=== PATIENT | female | born 1995 | race African-American/Black ===

== ENCOUNTER 2019-05-16 18:25 | Emergency (ER) | payer OTHER, BC ==
[~2019-05-16] VITALS: Ht 172.7 cm; Wt 70.8 kg
[2019-05-16 18:25] VITALS: BP_SYST 115
--- NOTE | 2019-05-16 18:25 | NUR ---
BROUGHT IN BY [facility], PLACED IN BED #8 AND TRIAGED. REPORT GIVEN TO BRANT
[2019-05-16] MEDS ORDERED: ONDANSETRON HCL 4 MG/2 ML VIAL IVP ONE (18:45)
[2019-05-16] MEDS ORDERED: KETOROLAC TROMETHAMINE 30 MG VIAL IVP ONE (18:45)
[2019-05-16] MEDS ORDERED: NACL 0.9% 1,000 ML IV ONE ×2 (18:45→19:45)
[2019-05-16 18:57] LABS: BILIRUBIN,URINE 1+ (NEGATIVE); BLOOD, URINE 2+ (NEGATIVE); CLARITY/URINE HAZY (CLEAR); COLOR,URINE YELLOW (YELLOW); GLUCOSE,URINE NEGATIVE (NEGATIVE); KETONES,URINE 2+ (NEGATIVE); LEUKOCYTE ESTERASE ,URINE NEGATIVE (NEGATIVE); NITRITE, URINE NEGATIVE (NEGATIVE); PROTEIN URINE TRACE (NEGATIVE); UROBILINOGEN,URINE 0.2 (0.2-1.0)
--- NOTE | 2019-05-16 19:00 | NUR ---
ER HÉCTOR Muhammad at bedside examining patient.
[2019-05-16 19:09] LABS: BASOPHILS % (AUTO) 0.2 % (0.0-2.0); HEMATOCRIT 38.1 % (36-48); HEMOGLOBIN 12.6 g/dL (12.0-16.0); LYMPHOCYTES # (AUTO) 0.4 K/uL (1.0-5.5); LYMPHOCYTES % (AUTO) 8.2 % (20.5-51.5); MEAN CORPUSCULAR HEMOGLOBIN 29 pg (27-31); MEAN CORPUSCULAR HGB CONC 33 % (32-36); MEAN CORPUSCULAR VOLUME 89 fL (79.0-98.0); MONOCYTES # (AUTO) 0.2 K/uL (0.0-1.0); NEUTROPHILS # (AUTO) 3.9 K/uL (1.8-7.7); NEUTROPHILS % (AUTO) 87.6 % (40.0-70.0); PLATELET COUNT (AUTO) 177 K/uL (130-430); RED CELL DISTRIBUTION WIDTH 12.9 % (9.0-15.0); WHITE BLOOD COUNT (AUTO) 4.4 K/uL (4.8-10.8)
--- NOTE | 2019-05-16 19:10 | NUR ---
Pt is a 23 y/o female who comes to the ER c/o n/v and some stomach pain. Pt states she was working out at a park when she started to feel nauseous earlier this morning. At the park she vomitted a little. Pt states a nurse came and told her to lay down w/ her feet elevated. Pt then went home around noon where she started to feel nauseos and again and started to vomit. Pt also states that she tried to eat seom fruit but couldn't keep it down. Pt states she was going to go see her PCP but decided to come to the ER instead. Pt's stomach pain at this time is a 6/10. Pt doesn't verbalize any other needs at this time. Will cont to monitor.
[2019-05-16 19:21] LABS: CALCIUM 9.1 mg/dL (8.4-11.0); CREATININE 0.76 mg/dL (0.55-1.30)
[2019-05-16 19:24] LABS: BACTERIA,URINE FEW /HPF (None Seen); WBC,URINE 0-3 /HPF (0-3)
[2019-05-16 19:25] LABS: MUCUS,URINE 2+ /LPF (None Seen)
[2019-05-16 19:26] LABS: ALBUMIN 4.1 g/dL (3.4-4.8); TOTAL BILIRUBIN 0.7 mg/dL (0.0-1.0)
[2019-05-16] MEDS ORDERED: POTASSIUM CHLORIDE 20 MEQ TAB.PRT.SR PO ONE (20:00)
[2019-05-16 20:10] LABS: CKMB RELATIVE INDEX 0.3 (0.0-2.9); CREATINE KINASE MB 0.7 ng/mL (0-3.6)
[2019-05-16 21:00] VITALS: BP_SYST 115
--- NOTE | 2019-05-16 21:00 | NUR ---
Patient given written and verbal discharge instructions and verbalizes understanding. ER SHIPPING CLERK CRATING Blanquita Muhammad discussed with patient the results and treatment provided. Patient in stable condition. ID arm band removed. IV catheter removed intact and dressing applied, no active bleeding. Rx of zofran and tylenol given. Patient educated on pain management and to follow up with PMD. Pain Scale 0/10. Opportunity for questions provided and answered. Medication side effect fact sheet provided.
== END 2019-05-16 21:00 | disposition home or self-care (01) ==
LOC: SED 18:25
DX: E16.2 Hypoglycemia, unspecified (principal); M62.82 Rhabdomyolysis; R03.0 Elevated blood-pressure reading, without diagnosis of hypertension
CPT/HCPCS: 36415; 80053; 81000; 81025; 82550; 82553; 84550; 85025; 93005; 96361; 96374; 96375; 99284; J1885; J2405; J7030; 96365